=== PATIENT | female | born 1995 | race African-American/Black ===

== ENCOUNTER 2017-03-22 12:04 | Emergency (ER) | payer OTHER ==
[~2017-03-22] VITALS: Ht 167.6 cm; Wt 93.0 kg
[~2017-03-22 12:04] MED LIST: CYCLOBENZAPRINE10 MG ORAL; IBUPROFEN600 MG ORAL; NKM
[2017-03-22 12:40] VITALS: BP 104/62
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
[2017-03-22] MEDS ORDERED: ZYRTEC-D TABLE1 EACH ORAL (12:48)
[2017-03-22] MEDS ORDERED: PROMETHAZINE-C118 M1 ORAL (12:48)
[2017-03-22] MEDS ORDERED: GUAIFENESIN1200 MG PO (12:48)
[2017-03-22 12:55] VITALS: BP 104/62
== END 2017-03-22 12:55 | disposition home or self-care (01) ==
LOC: EMR 12:46
DX: J06.9 Acute upper respiratory infection, unspecified (principal); B34.9 Viral infection, unspecified
CPT/HCPCS: 99283